=== PATIENT | male | born 1980 | race Two or more races ===

== ENCOUNTER 2017-07-02 14:13 | Emergency (ER) | payer SELFPAY ==
[~2017-07-02] VITALS: Ht 180.3 cm; Wt 117.9 kg
[2017-07-02 18:31] LABS: Basophils # (auto) 0.1 uL; Eosinophils # (auto) 0.2 uL; Eosinophils % (auto) 1.9 % (0.0-7.0); Monocytes # (auto) 0.8 uL; Nucleated Red Blood Cells % 0.1 %; White Blood Cell 9.2 10^3/uL (4.4-10.8)
[2017-07-02 18:33] LABS: Basophils % (auto) 0.7 % (0.0-2.0); Hematocrit 54.3 % (41.0-53.0); Lymphocytes # (auto) 2.2 uL; Lymphocytes % (auto) 23.7 % (10.0-50.0); Mean Corpuscular Hemoglobin 32.4 pg (28.0-32.0); Mean Corpuscular Hgb Conc. 35.1 g/dL (32.0-36.0); Mean Corpuscular Volume 92.4 fL (80.0-100.0); Monocytes % (auto) 8.6 % (0.0-12.0); Neutrophils % (auto) 65.1 % (37.0-80.0); Platelet Count (auto) 260 10^3/uL (140-450); Red Cell Distribution Width 12.9 % (11.8-14.3)
[2017-07-02 18:52] VITALS: BP 136/96
[2017-07-02 18:54] LABS: Albumin 4.9 g/dL (3.4-5.0); Alkaline Phosphatase 87 U/L (45-117); Anion Gap 10 (5-15); Aspartate Aminotransferase 23 U/L (15-37); BUN/Creatinine Ratio 14.8; Bilirubin, Total 1.6 mg/dL (0.2-1.0); Blood Urea Nitrogen 17 mg/dL (7-18); Calcium 9.6 mg/dL (8.5-10.1); Carbon Dioxide 24 mmol/L (21-32); Chloride 100 mmol/L (98-107); GFR African American 92 mL/min; GFR Non-African American 76 mL/min; Glucose 224 mg/dL (74-106); Potassium 5.1 mmol/L (3.5-5.1); Sodium 134 mmol/L (136-145); Total Protein 9.2 g/dL (6.4-8.2)
== END 2017-07-03 00:05 | disposition left against medical advice (07) ==
LOC: ER 14:13 → EDBD 14:13 → ER 07-03 00:05
DX: R07.9 Chest pain, unspecified (principal); Z53.21 Procedure and treatment not carried out due to patient leaving prior to being seen by health care provider
CPT/HCPCS: 36415; 71020; 80053; 82962; 84484; 85025; 93005

== ENCOUNTER 2017-07-03 02:23 | Emergency (ER) | payer MEDICAID ==
[~2017-07-03] VITALS: Ht 175.3 cm; Wt 117.9 kg
[2017-07-03] MEDS ORDERED: cloNIDine HCL 0.1 MG TAB PO ONE (03:00)
[2017-07-03] MEDS ORDERED: InsuLIN REG 1unit/0.01ml Soln (100units/ml) SC ONE (03:15)
[2017-07-03 04:29] VITALS: BP 131/95
== END 2017-07-03 04:41 | disposition home or self-care (01) ==
LOC: ER 02:25
DX: E11.9 Type 2 diabetes mellitus without complications (principal); I10 Essential (primary) hypertension; Z76.0 Encounter for issue of repeat prescription; Z85.47 Personal history of malignant neoplasm of testis
CPT/HCPCS: 82962; 96372; 99283; J1815

== ENCOUNTER 2018-02-14 11:02 | Emergency (ER) | payer MEDICAID ==
[~2018-02-14] VITALS: Ht 180.3 cm; Wt 117.9 kg
[2018-02-14] MEDS ORDERED: SODIUM CHLORIDE 0.9% 1,000 ML IV ONE (11:15)
[2018-02-14 11:23] VITALS: BP 132/86
== END 2018-02-14 12:33 | disposition home or self-care (01) ==
LOC: ER 11:02 → EDBD 11:02 → ER 12:32
DX: E11.628 Type 2 diabetes mellitus with other skin complications (principal); L03.115 Cellulitis of right lower limb; F15.90 Other stimulant use, unspecified, uncomplicated; I10 Essential (primary) hypertension; Z85.47 Personal history of malignant neoplasm of testis; Z90.49 Acquired absence of other specified parts of digestive tract
CPT/HCPCS: 96360

== ENCOUNTER 2025-04-23 09:03 | Emergency (ER) | payer MEDICAID ==
[~2025-04-23] VITALS: Ht 182.9 cm; Wt 262.0 kg
--- NOTE | 2025-04-23 10:11 | ED.PDOC ---
History of present illness HPI Comments 45-year-old male who presents to ED for chief complaint of medication refill. Patient states that he moved from [place] few months back And states he needs a refill of his medications until establishing care with a PCP. The patient states that he has a appointment with the PCP in May and needs refill of medications until then. Patient states the medications he needs refills for include Zoloft metformin Abilify and ozempic. Patient otherwise denies any other concerns or complaints. Patient otherwise denies any other symptoms at this time. Chief Complaint: Diabetes Time Seen by MD: 09:21 Primary Care Provider: NONE History of present illness: Medications, Allergies Allergies: Coded Allergies: NO KNOWN ALLERGIES (Unverified , 07/02/17) Home Meds Active Scripts Gabapentin (Once-Daily) (Gabapentin) 300 Mg Tab, 600 MG PO BID for 30 Days, #120 TAB 0 Refills Prov:ELVIN MUJICA NP 04/23/25 Metformin HCl (Metformin Hydrochloride) 1,000 Mg Tab, 1000 MG PO BID for 30 Days, #60 TAB 0 Refills Prov:ELVIN MUJICA NP 04/23/25 Sertraline Hcl (Sertraline Hcl) 50 Mg Tab, 150 TAB PO DAILY for 30 Days, #90 TAB 0 Refills Prov:ELVIN MUJICA NP 04/23/25 Information Source: Patient Mode of Arrival: Ambulatory Past Medical History PAST MEDICAL HISTORY: Cancer, DM, Gallstones, HTN Surgical History: Cholecystectomy Social History Smoker: Non-Smoker Alcohol: Occasionally Drugs: Methamphetamine Lives In: Home All Other Systems: Reviewed and Negative (See HPI) Physical Exam General Appearance: No Apparent Distress, Normal HEENT: Normal ENT Inspection, Pharynx Normal, TMs Normal Neck: Full Range of Motion, Non-Tender, Normal, Normal Inspection Respiratory: Chest Non-Tender, Lungs Clear, No Accessory Muscle Use, No Re spiratory Distress, Normal Breath Sounds Cardiovascular: No Edema, No JVD, No Murmur, No Gallop, Normal Peripheral Pulses, Regular Rate/Rhythm Breast Exam: Deferred Gastrointestinal: No Organomegaly, Non Tender, No Pulsatile Mass, Normal Bowel Sounds, Soft Genitalia: Deferred Pelvic: Deferred Rectal: Deferred Extremities: No calf tenderness, Normal capillary refill, Normal inspection, Normal range of motion, Non-tender, No pedal edema Musculoskeletal : Apperance: Normal Neurologic: Alert, chain hoist operator II-XII nml as Tested, No Motor Deficits, Normal Affect, Normal Mood, No Sensory Deficits Cerebellar Function: Normal Reflexes: Normal Skin: Dry, Normal Color, Warm Lymphatic: No Adenopathy Was a procedure done? Was a procedure done?: No Differential Diagnosis (DM) Differential Diagnosis: Dehydration, DKA, Hyperglycemia Other Differential Diagnosis Medication refill X-Ray, Labs, Meds, VS Vital Signs Date Time Temp Pulse Resp B/P (MAP) Pulse Ox O2 Delivery O2 Flow Rate FiO2 04/23/25 09:05 98.4 89 16 118/82 98 98.4 X-Ray, Labs, Meds, VS Comment 45-year-old male who presents to ED for chief complaint of medication refill. Patient arrives alert and oriented, ABC's intact, afebrile, vital signs stable, saturating well in room air Labs in the ED showed (pertinent+ and then pertinent-) Patient was given:_. Tolerated medications with no adverse reaction. Additional MDM Review of External, Non-ED records: External records reviewed. Discussion with independent historian (EMS, family) history obtained from the patient/parents (if applicable) at bedside Chronic conditions affecting care: None Social determinants of health affecting care: None Consideration of admission (observation or admission): I considered escalation of care to admission for this patient, however given the reassuring workup, the patient is safe for outpatient management. Discussion with the Radiology: No Tests considered but not performed: Prescription medication considered but not given: 12 lead EKG interpretation: Patient Education/Counseling: Diagnosis, Treatment Family Education/Counseling: No Family Present SEPSIS Sepsis Screen Date sepsis recognized/suspect: Apr 23, 2025 Time Sepsis recognized/suspect: 906 Recent Procedure: No On Antibiotic Therapy: No Respiratory Rate >20: No Heart Rate >90: No Temp<36 C (96.8 F) or >38.3 C: No SBP <90 or MAP <65 mmHG: No New Acute Mental Status Change: No Is the patient on CPAP, BIPAP,: No Vital Signs Date Time Temp Pulse Resp B/P (MAP) Pulse Ox O2 Delivery O2 Flow Rate FiO2 04/23/25 09:05 98.4 89 16 118/82 98 98.4 Departure 1 Departure Time of Disposition: 10:11 Impression: Primary Impression: Medication refill Disposition: HOME / SELF CARE / HOMELESS Condition: Stable e-Prescriptions Gabapentin (Once-Daily) (Gabapentin) 300 Mg Tab 600 MG PO BID for 30 Days, #120 TAB 0 Refills Prov: ELVIN MUJICA NP 04/23/25 Metformin HCl (Metformin Hydrochloride) 1,000 Mg Tab 1000 MG PO BID for 30 Days, #60 TAB 0 Refills Prov: ELVIN MUJICA NP 04/23/25 Sertraline Hcl (Sertraline Hcl) 50 Mg Tab 150 TAB PO DAILY for 30 Days, #90 TAB 0 Refills Prov: ELVIN MUJICA NP 04/23/25 Discharged With: Self Critical Care Note Critical Care Time?: No Stability Stability form required: No Heart Score Heart Score: Heart Score Response (Comments) Value History N/A 0 EKG N/A 0 Age N/A 0 Risk Factors N/A 0 Troponin N/A 0 Total 0 I personally scribed for ELVIN MUJICA NP ([email or web address]) on 04/23/25 at 10:31. El ectronically submitted by Jim ORTEGA). ELVIN MUJICA NP Apr 23, 2025 10:11
[2025-04-23] MEDS ORDERED: SERT-206 PO (10:19)
[2025-04-23] MEDS ORDERED: METF-929 PO (10:19)
[2025-04-23] MEDS ORDERED: GABA300T4 PO (10:19)
[2025-04-23 10:29] VITALS: BP 152/78; PULSE 87; RESP 18; TEMP 98.7; O2SAT 98
== END 2025-04-23 10:34 | disposition home or self-care (01) ==
LOC: ER 09:06
DX: E11.9 Type 2 diabetes mellitus without complications (principal); I10 Essential (primary) hypertension; Z76.0 Encounter for issue of repeat prescription; Z79.899 Other long term (current) drug therapy; Z90.49 Acquired absence of other specified parts of digestive tract